=== PATIENT | male | born 1940 | race Caucasian/White ===

== ENCOUNTER → 2023-05-24 13:38 | Outpatient (REF) | payer MEDICARE, BC, SELFPAY | LOC: WOUND 13:38 | PROVIDERS: ATTENDING PHYSICIAN Surgery | DX: E11.621 Type 2 diabetes mellitus with foot ulcer (principal); L97.521 Non-pressure chronic ulcer of other part of left foot limited to breakdown of skin; I73.9 Peripheral vascular disease, unspecified; I87.2 Venous insufficiency (chronic) (peripheral); Z95.818 Presence of other cardiac implants and grafts | CPT/HCPCS: 73630; 99204 ==

== ENCOUNTER → 2023-06-05 13:14 | Outpatient (REF) | payer MEDICARE, BC, SELFPAY | LOC: WOUND 13:14 | PROVIDERS: ATTENDING PHYSICIAN Surgery | DX: E11.621 Type 2 diabetes mellitus with foot ulcer (principal); L97.521 Non-pressure chronic ulcer of other part of left foot limited to breakdown of skin; I73.9 Peripheral vascular disease, unspecified; I87.2 Venous insufficiency (chronic) (peripheral); Z95.818 Presence of other cardiac implants and grafts | CPT/HCPCS: 99212 ==